=== PATIENT | male | born 1995 | race Two or more races ===

== ENCOUNTER 2023-08-09 08:28 | Emergency (ER) | payer MEDICAID ==
[~2023-08-09] VITALS: Ht 180.3 cm; Wt 100.0 kg
[2023-08-09] MEDS ORDERED: ACET500T58 PO (09:45)
[2023-08-09] MEDS ORDERED: AMOX500T3 PO (09:45)
[2023-08-09 10:00] VITALS: BP 119/72; PULSE 72; RESP 18; TEMP 98.2; O2SAT 98
== END 2023-08-09 10:01 | disposition home or self-care (01) ==
LOC: ER 08:28
DX: K08.89 Other specified disorders of teeth and supporting structures (principal); R10.32 Left lower quadrant pain